=== PATIENT | female | born 1970 | race Caucasian/White ===

== ENCOUNTER 2016-11-28 13:09 | Emergency (ER) | payer OTHER ==
--- NOTE | 2016-11-28 15:13 | UC ---
Respiratory Complaint HPI - HPI Summary HPI Summary: Chest congestion, cough w/ yellow-green sputum, nasal congestion, bilateral ear fullness, & sore throat since 11/15. SHe has h/o needing albuterol in past, but didnt use recently. denies h/o asthma or copd. + sinus pain/pressure worsening. felt feverish but didnt take temp. + smoker and smoking less since ill. - History of Current Complaint Chief Complaint: UCGeneralIllness Stated Complaint: UPPER RESPIRATORY Time Seen by Provider: 11/28/16 15:07 Hx Last Menstrual Period: 11/27/16 - Allergies/Home Medications Allergies/Adverse Reactions: Allergies Allergy/AdvReac Type Severity Reaction Status Date / Time Adhesive Tape Allergy Mild Rash Verified 11/28/16 14:01 Home Medications: Home Medications Atorvastatin* [Lipitor*] 40 mg PO DAILY 11/28/16 [History Confirmed 11/28/16] Diclofenac Sodium EC TAB* [Voltaren EC TAB*] 50 mg PO BID 11/28/16 [History Confirmed 11/28/16] Pregabalin CAP(*) [Lyrica CAP(*)] 200 mg PO TID 11/28/16 [History Confirmed ] SUMAtriptan TAB* [Imitrex TAB*] 100 mg PO SEE INSTRUCTIONS PRN 11/28/16 [ History Confirmed 11/28/16] PMH/Surg Hx/FS Hx/Imm Hx Previously Healthy: Yes Endocrine History Of: Reports: Thyroid Disease - hypo Cardiovascular History Of: Reports: Hypertension - Surgical History Surgical History: Yes Surgery Procedure, Year, and Place: tubal lig, laminectomy, b/l carpal tunnel - Family History Known Family History: Negative: Respiratory Disease - Social History Alcohol Use: None Substance Use Type: None Smoking Status (MU): Heavy Every Day Tobacco Smoker Type: Cigarettes Amount Used/How Often: 1 PPD Review of Systems Constitutional: Fever, Chills, Fatigue Skin: Negative Eyes: Negative ENT: Negative, Sore Throat, Ear Ache, Nasal Discharge, Other - + sinus pain/ pressure Respiratory: Cough Cardiovascular: Negative Gastrointestinal: Negative Genitourinary: Negative Motor: Negative Neurovascular: Negative Musculoskeletal: Negative Neurological: Negative Psychological: Negative All Other Systems Reviewed And Are Negative: Yes Physical Exam Triage Information Reviewed: Yes Appearance: Well-Nourished, Ill-Appearing Vital Signs: Initial Vital Signs Temp 98.9 F 11/28/16 14:06 Pulse 68 11/28/16 14:06 Resp 16 11/28/16 14:06 BP 148/78 11/28/16 14:06 Pulse Ox 97 11/28/16 14:06 Eye Exam: Normal ENT: Positive: Pharyngeal erythema - +PND< no exudate. + b/l frontal and maxillary tenderness., Nasal congestion, Nasal drainage, TMs normal. Negative: Tonsillar swelling, Tonsillar exudate, Muffled/hoarse voice Dental Exam: Normal Neck exam: Normal Neck: Positive: Supple, Nontender, No Lymphadenopathy Respiratory: Positive: Chest non-tender, Lungs clear, No respiratory distress, No accessory muscle use, Decreased breath sounds, Wheezing - mild b/l expiratory. Negative: Crackles, Rhonchi, Stridor Cardiovascular Exam: Normal Cardiovascular: Positive: RRR, No Murmur, Pulses Normal, Brisk Capillary Refill Abdominal Exam: Normal Abdomen Description: Positive: Nontender, Soft Musculoskeletal Exam: Normal Neurological Exam: Normal Psychological Exam: Normal Skin Exam: Normal UC Diagnostic Evaluation - Laboratory O2 Sat by Pulse Oximetry: 97 Respiratory Course/Dx - Differential Dx/Diagnosis Differential Diagnosis/HQI/PQRI: Asthma, Bronchitis, Influenza, Laryngitis, SARS Provider Diagnoses: sinusitis, bronchitis Discharge - Discharge Plan Condition: Stable Disposition: HOME Prescriptions: Albuterol HFA INHALER* [Ventolin HFA Inhaler*] 2 puff INH Q4H PRN #1 mdi PRN Reason: Cough Amoxicillin (*) 875 mg PO BID #20 tab Patient Education Materials: Sinusitis (ED), Acute Bronchitis (ED) Referrals: REBECCA Stroud [Primary Care Provider] - 3 Days Additional Instructions: Fluids, rest. Take a probiotic while on the antibiotic. Decreasing smoking will be helpful.
[2016-11-28 15:25] VITALS: BP 131/72
== END 2016-11-28 15:27 | disposition home or self-care (01) ==
LOC: UCCORT 13:09
DX: J32.9 Chronic sinusitis, unspecified (principal); J40 Bronchitis, not specified as acute or chronic; F17.210 Nicotine dependence, cigarettes, uncomplicated
CPT/HCPCS: 99212; G0463

== ENCOUNTER 2017-10-19 10:57 | Emergency (ER) | payer OTHER ==
[2017-10-19 11:44] VITALS: BP 133/84
--- NOTE | 2017-10-19 12:11 | UC ---
Lower Extremity/Ankle HPI - HPI Summary HPI Summary: 46 y/o female presents to the urgent care c/o RT calf pain for the past 4 weeks. Pt reports she was going up the stair and she felt a sharp pain which resolved. About 2 weeks ago similar symptoms returned after walking up the stairs again. Pain was improving , but yesterday she twisted her RT lower leg and pain became worse. Her Rt foot feel cold. Pain is 4/10 it is sharp, and throbbing at times. Pt denies fever, SOB, chest pain , abdominal pain, HX of DVT. She is a everyday heavy smoker and she was recently Rx Progestin PO for uterine bleeding. - History of Current Complaint Chief Complaint: UCLowerExtremity Stated Complaint: RIGHT LEG PAIN Time Seen by Provider: 10/19/17 12:09 Hx Obtained From: Patient Hx Last Menstrual Period: 09/18/17 Onset/Duration: Gradual Onset, Lasting Weeks - 4 weeks ago, Still Present, Worse Since - yesterday Severity Initially: Mild Severity Currently: Moderate Pain Intensity: 4 Pain Scale Used: 0-10 Numeric Aggravating Factor(s): Ambulation Alleviating Factor(s): Rest, Ice Able to Bear Weight: Yes - Risk Factors Gout Risk Factors: Age Over 40, Hypertension DVT Risk Factors: Oral Contraceptives, Smoking, Recent Trauma Septic Arthritis Risk Factor: Negative - Allergies/Home Medications Allergies/Adverse Reactions: Allergies Allergy/AdvReac Type Severity Reaction Status Date / Time Adhesive Tape Allergy Mild Rash Verified 10/19/17 11:34 Home Medications: Home Medications Bcp 10/19/17 [History] Nerve Med TID 10/19/17 [History] Ra Med BID 10/19/17 [History] Vitamin Med BID 10/19/17 [History] PMH/Surg Hx/FS Hx/Imm Hx Previously Healthy: Yes Endocrine History: Hypothyroidism, Dyslipidemia Other Endocrine History: RA Cardiovascular History: Hypertension - Surgical History Surgical History: Yes Surgery Procedure, Year, and Place: tubal lig, laminectomy, b/l carpal tunnel - Family History Known Family History: Positive: Cardiac Disease, Hypertension Negative: Respiratory Disease - Social History Occupation: Employed Full-time Lives: With Family Alcohol Use: None Substance Use Type: None Smoking Status (MU): Heavy Every Day Tobacco Smoker Type: Cigarettes Amount Used/How Often: 1 PPD Review of Systems Constitutional: Negative Skin: Negative Eyes: Negative ENT: Negative Respiratory: Negative Cardiovascular: Negative Gastrointestinal: Negative Genitourinary: Negative Motor: Negative Neurovascular: Negative Musculoskeletal: Other: - RT calf pain s/p injury Neurological: Negative Psychological: Negative Is Patient Immunocompromised?: No All Other Systems Reviewed And Are Negative: Yes Physical Exam Triage Information Reviewed: Yes Vital Signs: Initial Vital Signs Temp 97.5 F 10/19/17 11:39 Pulse 90 10/19/17 11:39 Resp 18 10/19/17 11:39 BP 133/84 10/19/17 11:39 - Additional Comments Vital Signs Reviewed: Yes General : well developed, well nourished female w/o any apparent distress Eyes: Positive: Conjunctiva Clear - PERRLA, EOMI ENT: Positive: Normal ENT inspection, Hearing grossly normal, Pharynx normal, TMs normal Neck: Positive: Supple, Nontender, No Lymphadenopathy Respiratory: Positive: Chest non-tender, Lungs clear, Normal breath sounds, No respiratory distress Cardiovascular: Positive: RRR, No Murmur, Pulses Normal Abdomen Description: Positive: Nontender, No Organomegaly, Soft. Negative: CVA Tenderness (R), CVA Tenderness (L) Bowel Sounds: Positive: Present Musculoskeletal: Positive: RT leg Strength Intact, ROM Intact, Pt is able to bear weight w/o limping. No surface trauma, ecchymosis, erythema, lesions, ulcers or break in skin integrity. The R leg is without obvious asymmetry or deformity when compared to the L leg. No bony step-off,point tenderness to palpation over the medial aspect of the Rt calf. Homans sign positive. Distal motor and neurovascular status are intact. smal varicose cord palpated on the same side Neurological Exam: Normal Psychological Exam: Normal Skin Exam: Normal Lower Extremity Course/Dx - Course Course Of Treatment: 46 y/o female presents to the urgent care c/o RT calf pain for the past 4 weeks. Pt reports she was going up the stair and she felt a sharp pain which resolved. About 2 weeks ago similar symptoms returned after walking up the stairs again. Pain was improving , but yesterday she twisted her RT lower leg and pain became worse. Her Rt foot feel cold. Pain is 4/10 it is sharp, and throbbing at times. Pt denies fever, SOB, chest pain , abdominal pain , HX of DVT. She is a everyday heavy smoker and she was recently Rx Progestin PO for uterine bleeding.Hx obtained. Pt with point tenderness to palpation over the medial aspect of the Rt calf. Homans sign positive. Distal motor and neurovascular status are intact. smal varicose cord palpated on the same side on examination. RLL Venous doppler US ordered to r/o DVT. Result: Normal examination, No evidence of deep venous thrombosis. Pt's RLL immobilized with vishal-bandage and Advised RICE, and to continue taking diclofenac PO for pain, If not improvement of symptoms to f/u with Orthopedic DR Gracia referral for further evaluation and treatment. Pt understood and agreed with D/C instructions. - Differential Dx/Diagnosis Differential Diagnosis/HQI/PQRI: Bursitis, Contusion, DVT, Phlebitis, Sprain, Strain, Tendonitis Provider Diagnoses: 1- RT calf pain s/p injury Discharge - Discharge Plan Condition: Stable Disposition: HOME Patient Education Materials: Musculoskeletal Pain (ED) Referrals: Kurt Gracia MD [Medical Doctor] - 1 Week REBECCA Stroud [Primary Care Provider] - 1 Week Additional Instructions: 1-Continue taking Diclofenac PO you have at home as directed to alleviate pain and swelling. 2-Please apply ice, keep your leg t immobilized with the Vishal bandage. Elevate your leg at night time. Avoid strenuous exercise or standing for long periods of time. 3- Please f/u with your PCP or Orthopedic DR Gracia in 1 week if not improvement of symptoms for further evaluation and treatment. 4- If you develop SOB, palpitations, severe pain with swelling please go immediately to the ER for further management
--- NOTE | 2017-10-19 13:14 | RAD ---
INDICATION: Pain and swelling. Right calf pain COMPARISON: None TECHNIQUE: Duplex interrogation of the right lowerextremity was performed. FINDINGS: Deep veins: The common femoral, great saphenous, profunda femoris, proximal, mid, and distal deep femoral, popliteal, posterior tibial, and peroneal veins are patent. There is normal compressibility, augmentation, and phasic flow. Superficial veins: There are no findings of superficial thrombophlebitis. Popliteal fossa:There is no evidence of a popliteal cyst. Soft tissues:There are no soft tissue abnormalities. IMPRESSION: Normal examination. No evidence of deep venous thrombosis
== END 2017-10-19 13:42 | disposition home or self-care (01) ==
LOC: UCCORT 10:57
DX: M79.661 Pain in right lower leg (principal); S89.91XA Unspecified injury of right lower leg, initial encounter; X50.1XXA Overexertion from prolonged static or awkward postures, initial encounter; Y93.9 Activity, unspecified; Y92.9 Unspecified place or not applicable; E03.9 Hypothyroidism, unspecified; E78.5 Hyperlipidemia, unspecified; M06.9 Rheumatoid arthritis, unspecified; I10 Essential (primary) hypertension; F17.210 Nicotine dependence, cigarettes, uncomplicated
CPT/HCPCS: 99211; G0463

== ENCOUNTER 2018-08-26 18:30 | Emergency (ER) | payer OTHER ==
[2018-08-26 19:02] VITALS: BP 124/76
--- NOTE | 2018-08-26 19:18 | UC ---
UC General HPI - HPI Summary HPI Summary: pt is c/o sinus pain and pressure that began yesterday. last pm she developed some n/v x 5 and loose stool that has since resolved. today, pt has a sore throat and fatigue - History of Current Complaint Chief Complaint: UCGeneralIllness Stated Complaint: SINUS PRESSURE Time Seen by Provider: 08/26/18 18:51 Hx Obtained From: Patient Hx Last Menstrual Period: ablation Onset/Duration: Gradual Onset Timing: Constant Pain Intensity: 9 Associated Signs & Symptoms: Negative: Fever - Allergy/Home Medications Allergies/Adverse Reactions: Allergies Allergy/AdvReac Type Severity Reaction Status Date / Time Adhesive Tape Allergy Mild Rash Verified 08/26/18 18:49 Home Medications: Home Medications Alpha Lipoic Acid [Alpha-Lipoic Acid] 50 mg PO BID 08/26/18 [History Confirmed 08/26/18] Hydroxychloroquine TAB* [Plaquenil TAB*] 200 mg PO BID 08/26/18 [History Confirmed 08/26/18] Loratadine 10 mg PO DAILY 08/26/18 [History Confirmed 08/26/18] Methotrexate TAB* 10 mg PO WEEKLY 08/26/18 [History Confirmed 08/26/18] Naproxen Sodium [Aleve] 220 mg PO ONCE PRN 08/26/18 [History Confirmed 08/26/18] [place]-3 Fatty Acids/Fish Oil [Fish Oil 1,000 mg Capsule] 2 each PO DAILY [History Confirmed 08/26/18] Tapentadol HCl [Nucynta] 50 mg PO TID 08/26/18 [History Confirmed 08/26/18] PMH/Surg Hx/FS Hx/Imm Hx - Additional Past Medical History Additional PMH: chronic back pain, RA Endocrine History: Thyroid Disease, Dyslipidemia Cardiovascular History: Hypertension - Surgical History Surgical History: Yes Surgery Procedure, Year, and Place: tubal lig, laminectomy, b/l carpal tunnel. Uterine ablation - Family History Known Family History: Positive: Cardiac Disease, Hypertension Negative: Respiratory Disease - Social History Alcohol Use: None Substance Use Type: None Smoking Status (MU): Heavy Every Day Tobacco Smoker Type: Cigarettes Amount Used/How Often: 1 PPD Length of Time of Smoking/Using Tobacco: 30 yrs Have You Smoked in the Last Year: Yes - Immunization History Vaccination Up to Date: Yes Review of Systems All Other Systems Reviewed And Are Negative: Yes Constitutional: Positive: Fatigue Skin: Positive: Negative Eyes: Positive: Negative ENT: Positive: Sore Throat, Sinus Congestion, Sinus Pain/Tenderness Respiratory: Positive: Cough - chronic and unchanged. Negative: Shortness Of Breath Cardiovascular: Positive: Negative Gastrointestinal: Positive: Vomiting, Diarrhea, Nausea Genitourinary: Positive: Negative Motor: Positive: Negative Neurovascular: Positive: Negative Musculoskeletal: Positive: Negative Neurological: Positive: Negative Psychological: Positive: Negative Physical Exam Triage Information Reviewed: Yes Appearance: Well-Appearing Vital Signs: Initial Vital Signs Temp 97.7 F 08/26/18 18:57 Pulse 95 08/26/18 18:57 Resp 18 08/26/18 18:57 BP 124/76 08/26/18 18:57 Pulse Ox 100 08/26/18 18:57 Vital Signs Reviewed: Yes Eyes: Positive: Conjunctiva Clear ENT: Positive: Pharyngeal erythema, Nasal congestion, Nasal drainage - clear, TMs normal, Uvula midline. Negative: Trismus, Muffled voice, Hoarse voice, Sinus tenderness Neck: Positive: Supple, Nontender, Enlarged Nodes @ - peritonsilar Respiratory: Positive: Lungs clear, No respiratory distress, Decreased breath sounds Cardiovascular: Positive: RRR, No Murmur Abdomen Description: Positive: Nontender, No Organomegaly, Soft. Negative: Distended, Guarding Bowel Sounds: Positive: Present Musculoskeletal: Positive: ROM Intact Neurological: Positive: Alert Psychological: Positive: Age Appropriate Behavior Skin Exam: Normal Diagnostics - Laboratory Diagnostic Studies Completed/Ordered: rapid strep=neg Course/Dx - Course Course Of Treatment: non toxic. no acute abdomen. rapid strep=neg. tx supportive. - Differential Dx - Multi-Symptom Provider Diagnoses: URI, vomiting, diarrhea Discharge - Sign-Out/Discharge Documenting (check all that apply): Patient Departure All imaging exams completed and their final reports reviewed: No Studies - Discharge Plan Condition: Stable Disposition: HOME Patient Education Materials: Upper Respiratory Infection (DC), Acute Nausea and Vomiting (ED), Acute Diarrhea (ED) Referrals: Sunny Pedraza PA [Physician Supervisor [employer]] - 5 Days - Billing Disposition and Condition Condition: STABLE Disposition: Home
== END 2018-08-26 19:35 | disposition home or self-care (01) ==
LOC: UCCORT 18:30
DX: J06.9 Acute upper respiratory infection, unspecified (principal); R11.10 Vomiting, unspecified; R19.7 Diarrhea, unspecified; I10 Essential (primary) hypertension; G89.29 Other chronic pain; M54.9 Dorsalgia, unspecified; M06.9 Rheumatoid arthritis, unspecified; F17.210 Nicotine dependence, cigarettes, uncomplicated
CPT/HCPCS: 87651; 99212; G0463

== ENCOUNTER 2019-05-15 13:22 | Emergency (ER) | payer OTHER ==
[2019-05-15 14:10] VITALS: BP 118/71
[2019-05-15] MEDS ORDERED: predniSONE TAB* 20 MG PO ONE (14:16)
[2019-05-15] MEDS ORDERED: Albuterol HFA INHALER* 8 gm MDI INH ONE (14:16)
--- NOTE | 2019-05-15 14:28 | UC ---
Respiratory Complaint HPI - HPI Summary HPI Summary: 48 yo female with 2 week hx post nasal drip/cough/facial pressure/wheezing no f/c no cp or sob - History of Current Complaint Chief Complaint: UCRespiratory Stated Complaint: COUGH, CONGESTION, HEADACHE Hx Obtained From: Patient Hx Last Menstrual Period: ablation Onset/Duration: Gradual Onset Timing: Constant Severity Initially: Mild Severity Currently: Moderate Pain Intensity: 5 Pain Scale Used: 0-10 Numeric Character: Cough: Productive Aggravating Factors: Nothing Associated Signs And Symptoms: Positive: Wheezing, URI, Nasal Congestion, Sinus Discomfort - Allergies/Home Medications Allergies/Adverse Reactions: Allergies Allergy/AdvReac Type Severity Reaction Status Date / Time Adhesive Tape Allergy Mild Rash Verified 05/15/19 14:03 Home Medications: Home Medications Ferrous Sulfate TAB* 325 mg PO BID 05/15/19 [History Confirmed 05/15/19] Ibuprofen TAB* [Advil TAB*] 600 mg PO Q6H PRN 05/15/19 [History Confirmed ] Levothyroxine TAB* [Synthroid TAB*] 75 mcg PO DAILY 05/15/19 [History Confirmed 05/15/19] PMH/Surg Hx/FS Hx/Imm Hx Previously Healthy: Yes - RA Endocrine History: Dyslipidemia Cardiovascular History: Hypertension Respiratory History: COPD, Bronchitis - Surgical History Surgical History: Yes Surgery Procedure, Year, and Place: tubal lig, laminectomy, b/l carpal tunnel. Uterine ablation - Family History Known Family History: Positive: Cardiac Disease, Hypertension, Diabetes Negative: Respiratory Disease - Social History Alcohol Use: None Substance Use Type: Prescribed Smoking Status (MU): Heavy Every Day Tobacco Smoker Type: Cigarettes Amount Used/How Often: 1 PPD Length of Time of Smoking/Using Tobacco: Since Age 14 Have You Smoked in the Last Year: Yes - Immunization History Vaccination Up to Date: Yes Review of Systems All Other Systems Reviewed And Are Negative: Yes Constitutional: Positive: Negative Skin: Positive: Negative Eyes: Positive: Negative ENT: Positive: Sore Throat, Nasal Discharge, Sinus Congestion, Sinus Pain/ Tenderness Respiratory: Positive: Cough, Other - wheezing Cardiovascular: Positive: Negative Gastrointestinal: Positive: Negative Genitourinary: Positive: Negative Motor: Positive: Negative Neurovascular: Positive: Negative Musculoskeletal: Positive: Negative Neurological: Positive: Negative Psychological: Positive: Negative Physical Exam Triage Information Reviewed: Yes Appearance: Well-Appearing, No Pain Distress, Well-Nourished Vital Signs: Initial Vital Signs Temp 98 F 05/15/19 14:02 Pulse 90 05/15/19 14:02 Resp 16 05/15/19 14:02 BP 118/71 05/15/19 14:02 Pulse Ox 99 05/15/19 14:02 Vital Signs Reviewed: Yes Eyes: Positive: Conjunctiva Clear ENT: Positive: Hearing grossly normal, Sinus tenderness, Uvula midline. Negative: Nasal congestion, Nasal drainage, Trismus, Muffled voice, Hoarse voice Neck: Positive: Supple, Nontender, No Lymphadenopathy Respiratory: Positive: Lungs clear, Normal breath sounds, No respiratory distress, No accessory muscle use Cardiovascular: Positive: RRR, No Murmur Musculoskeletal: Positive: ROM Intact, No Edema Neurological: Positive: Alert Psychological Exam: Normal Skin Exam: Normal Respiratory Course/Dx - Differential Dx/Diagnosis Provider Diagnosis: Bronchitis, acute, with bronchospasm, Sinusitis Discharge - Sign-Out/Discharge Documenting (check all that apply): Patient Departure All imaging exams completed and their final reports reviewed: No Studies - Discharge Plan Condition: Stable Disposition: HOME Prescriptions: Amoxicillin PO (*) [Amoxicillin 875 MG (*)] 875 mg PO BID #14 tab predniSONE [Deltasone 20 MG TAB] 40 mg PO DAILY #10 tab Referrals: Sunny Pedraza PA [Primary Care Provider] - 4 Days Additional Instructions: recheck for new or worsening symptoms - Billing Disposition and Condition Condition: STABLE Disposition: Home
== END 2019-05-15 14:44 | disposition home or self-care (01) ==
LOC: UCCORT 13:22
DX: J20.9 Acute bronchitis, unspecified (principal); J32.9 Chronic sinusitis, unspecified; I10 Essential (primary) hypertension; F17.210 Nicotine dependence, cigarettes, uncomplicated
CPT/HCPCS: 99213; A9270-GY; G0463; J7512